=== PATIENT | male | born 1995 | race Two or more races ===

== ENCOUNTER → 2018-01-21 | Emergency (ER) | payer OTHER ==
[~2018-01-21] VITALS: Ht 175.3 cm; Wt 90.7 kg
== END | disposition home or self-care (01) ==
LOC: ER 08:17
DX: H61.21 Impacted cerumen, right ear (principal)

== ENCOUNTER 2019-02-19 15:27 | Emergency (ER) | payer OTHER ==
[~2019-02-19] VITALS: Ht 172.7 cm; Wt 81.6 kg
== END 2019-02-19 18:24 | disposition home or self-care (01) ==
LOC: ER 15:27
DX: A60.02 Herpesviral infection of other male genital organs (principal)